=== PATIENT | male | born 1955 ===

== ENCOUNTER 2018-03-16 12:05 | Inpatient (IN) ==
[2018-03-16] MEDS ORDERED: Diphtheria/Tetanus/Pertussis Vaccine Inj 0.5 ML Syringe IM ONE (12:12)
--- NOTE | 2018-03-16 12:27 | XR ---
EXAM DATE: 03/16/2018 12:22 PM EDT AGE/SEX: 89 years / Male INDICATIONS: Trauma alert. Fall. CLINICAL DATA: This is the patient's initial encounter. Patient reports that signs and symptoms have been present for 1 day and indicates a pain score of Nonresponsive. MEDICAL/SURGICAL HISTORY: Non-responsive. Non-responsive. COMPARISON: No prior exams available for comparison. FINDINGS: 2 AP views of the pelvis performed on a trauma backboard demonstrate questionable fracture of the rig ht inferior pubic ramus. No other fracture is seen. No soft tissue abnormality or concerning radiopaq ue foreign body is identified. CONCLUSION: Questionable fracture of the right inferior pubic ramus. Electronically signed by: Aric Collazo MD 03/16/2018 12:26 PM EDT
--- NOTE | 2018-03-16 12:28 | XR ---
EXAM DATE: 03/16/2018 12:23 PM EDT AGE/SEX: 89 years / Male INDICATIONS: Trauma alert. Fall. CLINICAL DATA: This is the patient's initial encounter. Patient reports that signs and symptoms have been present for 1 day and indicates a pain score of Nonresponsive. MEDICAL/SURGICAL HISTORY: Non-responsive. Non-responsive. COMPARISON: No prior exams available for comparison. FINDINGS: Single frontal view of the chest performed on a trauma backboard demonstrates a normal size cardiac s ilhouette and mediastinum. Lungs are underinflated and no effusion, consolidation, or pneumothorax is identified. The bones and soft tissues demonstrate no acute abnormality. CONCLUSION: Underinflated examination without an acute abnormality identified. Electronically signed by: Aric Collazo MD 03/16/2018 12:27 PM EDT
[2018-03-16 12:39] LABS: Baso # (Auto) 0.1 th/mm3 (0.0-0.2); Baso % (Auto) 0.7 % (0.0-2.0); Eos # (Auto) 0.5 th/mm3 (0.0-0.4); Eos % (Auto) 6.3 % (0.0-4.0); Hematocrit 45.6 % (39.0-51.0); Hemoglobin 15.9 gm/dL (13.0-17.0); Lymph % (Auto) 37.3 % (9.0-44.0); Mean Corpuscular HGB Conc 34.9 % (32.0-36.0); Mean Corpuscular Volume 91.7 fL (80.0-100.0); Mean Platelet Volume 7.9 fL (7.0-11.0); Mono # (Auto) 0.9 th/mm3 (0.0-0.9); Mono % (Auto) 10.6 % (0.0-8.0); Neut # (Auto) 3.6 th/mm3 (1.8-7.7); Neut % (Auto) 45.1 % (16.0-70.0); Platelet Count 228 th/mm3 (150-450); Red Blood Count 4.97 mil/mm3 (4.50-5.90); Red Cell Distribution Width 12.9 % (11.6-17.2)
--- NOTE | 2018-03-16 12:39 | CT ---
EXAM DATE: 03/16/2018 12:29 PM EDT AGE/SEX: 89 years / Male INDICATIONS: Trauma alert, fall. CLINICAL DATA: This is the patient's initial encounter. Patient reports that signs and symptoms have been present for 1 day and indicates a pain score of Nonresponsive. MEDICAL/SURGICAL HISTORY: None. None. RADIATION DOSE: 66.34 CTDI (mGy) COMPARISON: No prior studies are available for comparison. TECHNIQUE: CT of the head without contrast. Using automated exposure control and adjustment of the mA and/or kV according to patient size, radiation dose was kept as low as reasonably achievable to ob tain optimal diagnostic quality images. DICOM format image data is available electronically for revi ew and comparison. FINDINGS: Cerebrum: There is mild cerebral atrophy. Ventricles are normal. There are acute subdural blood prod ucts at the high convexity and tracking along the interhemispheric fissure. These measure up to a max imal thickness of 15 mm. Inferiorly they track along the posterior interhemispheric fissure to the te ntorium. No midline shift, mass lesion, or acute infarction. No extraaxial fluid collections are see n. Posterior Fossa: The cerebellum and brainstem demonstrate no acute abnormality. The 4th ventricle is midline. The cerebellopontine angle is within normal limits. Extracranial: The visualized sinuses are clear. Skull: The calvaria is intact. No skull fracture. CONCLUSION: 1. Acute subdural blood products at the high convexity and tracking along the interhemispheric fissu re measuring up to a maximal thickness of 15 mm. No herniation is present. 2. There is no skull fracture. . Electronically signed by: Aric Collazo MD 03/16/2018 12:37 PM EDT
--- NOTE | 2018-03-16 12:43 | CT ---
EXAM DATE: 03/16/2018 12:33 PM EDT AGE/SEX: 89 years / Male INDICATIONS: Trauma alert, fall. CLINICAL DATA: This is the patient's initial encounter. Patient reports that signs and symptoms have been present for 1 day and indicates a pain score of Nonresponsive. MEDICAL/SURGICAL HISTORY: Non-responsive. Non-responsive. RADIATION DOSE: 24.66 CTDI (mGy) COMPARISON: No prior exams available for comparison. TECHNIQUE: Contiguous axial images were obtained using helical multirow detector technique. The vol umetric data was post-processed with multiplanar reconstruction in oblique axial, sagittal, and coron al planes. Using automated exposure control and adjustment of the mA and/or kV according to patient s ize, radiation dose was kept as low as reasonably achievable to obtain optimal diagnostic quality obie ges. DICOM format image data is available electronically for review and comparison. FINDINGS: There is normal sagittal spinal alignment without fracture or dislocation identified. There is no ant erolisthesis or retrolisthesis. Atlantoaxial relationship is within normal limits and there is no pre vertebral soft tissue swelling. Degenerative disc disease is appreciated at C4-C5, C5-C6, and C6-C7. There is facet arthrosis at multiple levels. The visualized surrounding structures demonstrate no acu te finding. Please refer to head CT report for description of the intracranial findings. CONCLUSION: 1. No acute cervical spine abnormality is identified. 2. Multilevel degenerative disc disease. Electronically signed by: Aric Collazo MD 03/16/2018 12:42 PM EDT
[2018-03-16 12:49] LABS: Activated Partial Thrombo Time 24.8 sec (23.4-31.7)
[2018-03-16 12:55] LABS: Anion Gap 8 meq/L (5-15); Blood Urea Nitrogen 24 mg/dL (7-18); Calcium 9.1 mg/dL (8.5-10.1); Carbon Dioxide 27.6 meq/L (21.0-32.0); Chloride 104 meq/L (98-107); Glomerular Filtration Rate 45 mL/min (>89); Glucose,Random 180 mg/dL (74-106); Sodium 140 meq/L (136-145)
[2018-03-16] MEDS ORDERED: Lidocaine 1%/Epinephrine 1:100,000 Inj 50 ML Vial INFILTRATN ONE (13:03)
--- NOTE | 2018-03-16 13:16 | P.CONNS ---
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 He is pleasant confused but remembers his name, , place of residence [place]. He does not remember what happened, +LOC. He is diabetic on metformin, but no blood thinners or other meds. Endorses no neck pain. Medications and Allergies Allergies Allergy/AdvReac Type Severity Reaction Status Date / Time No Known Allergies Allergy Verified 03/16/18 12:58 Home Medications Medication Instructions Recorded Confirmed Type levothyroxine [Synthroid] 100 mcg PO DAILY 03/16/18 03/16/18 History metformin 1,000 mg PO BID 03/16/18 03/16/18 History Exam Vital signs: Vital Signs 03/16/18 12:22 03/16/18 12:23 03/16/18 13:03 Temperature 97.8 F Pulse Rate 100 H Respiratory Rate 20 Blood Pressure 177/103 H Pulse Oximetry 99 99 100 Narrative: A&O x 3, GCS 14 CN II-XII intact Motor 5/5 UE/LE Sensation intact throughout Neck full ROM Results - Laboratory Findings CBC and BMP: 03/16/18 12:10 03/16/18 12:10 Abnormal lab findings: Abnormal Labs 03/16/18 03/16/18 03/16/18 12:10 12:10 12:10 [place] % (Auto) 10.6 H Eos % (Auto) 6.3 H Eos # (Auto) 0.5 H Fibrinogen 221 L POC Chloride 101 L POC BUN 23 H BUN Creatinine Estimated GFR POC Glucose 182 H Random Glucose 03/16/18 12:10 [place] % (Auto) Eos % (Auto) Eos # (Auto) Fibrinogen POC Chloride POC BUN BUN 24 H Creatinine 1.37 H Estimated GFR 45 L POC Glucose Random Glucose 180 H Assessment and Plan - Plan head CT: interhemispheric acute SDH measuring 14mm thickness in parts, along frontoparietal falx bilaterally C-spine Ct: no fracture 61yoM with interhemispheric traumatic SDH. Plan: Clear C-collar - spine cleared - no precautions Repeat CT with CT venogram in 4 hours. Keppra 1gm load then 500mg IV BID ICU admit neuro checks
--- NOTE | 2018-03-16 13:20 | ED ---
HPI General Chief Complaint: Trauma Alert Stated Complaint: Trauma Alert Time Seen by Provider: 03/16/18 13:10 History of Present Illness HPI narrative: This patient is brought in as a trauma alert. Patient was designated a level 2 trauma alert. I gave report to Dr. Cantu. This is a 67-year- old male who fell backwards off of a 4 foot truck lift and hit the back of his head on concrete. He lost consciousness. At the time of arrival he is awake and talking. He is confused but does have a GCS of 15. He has headache. Symptoms are moderate to severe in nature. Duration 1 hour. No alleviating factors. No exacerbating factors. Related Data Home Medications Medication Instructions Recorded Confirmed levothyroxine [Synthroid] 100 mcg PO DAILY 03/16/18 03/16/18 metformin 1,000 mg PO BID 03/16/18 03/16/18 Allergies Allergy/AdvReac Type Severity Reaction Status Date / Time No Known Allergies Allergy Verified 03/16/18 12:58 Review of Systems ROS: all other systems reviewed are negative Exam Narrative Exam Narrative: GENERAL: Well-nourished, well-developed patient in no apparent distress. SKIN: Focused skin assessment reveals no rash and nodules. Skin is Warm and dry. HEAD: There is a laceration to the back of the head. There is also a very shallow LACERATION at the low center forehead EYES: Pupils equal and round. No scleral icterus. No injection or drainage. ENT: No nasal bleeding or discharge. Mucous membranes pink and moist. NECK: Trachea midline. No JVD. C-collar maintained CARDIOVASCULAR: Regular rate and rhythm. No murmur appreciated. RESPIRATORY: No accessory muscle use. Clear to auscultation. Breath sounds equal bilaterally. GASTROINTESTINAL: Abdomen soft, non-tender, nondistended. Hepatic and splenic margins not palpable. MUSCULOSKELETAL: No obvious deformities. No clubbing. No cyanosis. No edema. NEUROLOGICAL: Awake and alert. No obvious cranial nerve deficits. Motor grossly within normal limits. He has mumbling but understandable speech. PSYCHIATRIC: Appropriate mood and affect; insight and judgment reduced. Course Initial Documented Vital Signs Pulse Oximetry 99 03/16/18 12:22 Last Documented Vital Signs Temperature 97.8 F 03/16/18 13:03 Pulse Rate 100 H 03/16/18 13:03 Respiratory Rate 20 03/16/18 13:03 Blood Pressure 177/103 H 03/16/18 13:03 Pulse Oximetry 100 03/16/18 13:03 Critical Care Time Critical Care Time: Yes Total Critical Care Time: 80 Attestation: Aggregate critical care time was 80 minutes. Time to perform other separately billable procedures was not included in the critical care time. My time did not include minutes spent treating any other patients simultaneously or on activities that did not directly contribute to the patient's treatment. The services I provided to this patient were to treat and/or prevent clinically significant deterioration that could result in: Cardiopulmonary arrest, permanent neurologic deficit, brain stem herniation I provided critical care services requiring my management, as noted below: Chart data review, documentation time, medication orders and management, vital sign assessments/reviewing monitor data, ordering and reviewing lab tests, ordering and interpreting/reviewing x-rays and diagnostic studies, care of the patient and discussion of the patient with the admitting physicians. Medical Decision Making MDM Narrative Medical decision making narrative: Patient is critically ill arrives as a trauma alert. IV placed. I gave him a tetanus booster. I ordered imaging survey. I reviewed x-rays of his chest and pelvis. Chest is negative. And pelvis shows questionable nondisplaced pelvic fracture. I have ordered CT imaging of abdomen and pelvis but this was delayed and he has not had it done yet. CT the brain shows intracranial hemorrhage. I have reviewed it in detail with the neurosurgeon and showed him the images. He also has looked at the C-spine and clear the C-spine. He recommends 1 g IV Keppra which I am ordering now Lab studies reviewed. Case discussed with trauma surgeon. He will be admitted to intensive care Medical Screen Exam Complete: Yes Emergency Medical Condition: Yes Differential Diagnosis Differential Diagnosis: Intracranial hemorrhage, concussion, brain stem herniation Lab Data Lab results reviewed: Yes I reviewed the patient's lab results. Lab results narrative: Labs are normal except for mild renal insufficiency and mild hyperglycemia Result diagrams: 03/16/18 12:10 03/16/18 12:10 Lab Results 03/16/18 03/16/18 03/16/18 Range/Units 12:10 12:10 12:10 WBC 8.0 (4.0-11.0) th/mm3 RBC 4.97 (4.50-5.90) mil/mm3 Hgb 15.9 (13.0-17.0) gm/dL POC Hgb (Calc) 15.3 (13.0-17.0) g/dL Hct 45.6 (39.0-51.0) % POC Hct 45.0 (39-51.0) % MCV 91.7 (80.0-100.0) fL MCH 32.0 (27.0-34.0) pg MCHC 34.9 (32.0-36.0) % RDW 12.9 (11.6-17.2) % Plt Count 228 (150-450) th/mm3 MPV 7.9 (7.0-11.0) fL Neut % (Auto) 45.1 (16.0-70.0) % Lymph % (Auto) 37.3 (9.0-44.0) % Spink % (Auto) 10.6 H (0.0-8.0) % Eos % (Auto) 6.3 H (0.0-4.0) % Baso % (Auto) 0.7 (0.0-2.0) % Neut # (Auto) 3.6 (1.8-7.7) th/mm3 Lymph # (Auto) 3.0 (1.0-4.8) th/mm3 Spink # (Auto) 0.9 (0.0-0.9) th/mm3 Eos # (Auto) 0.5 H (0.0-0.4) th/mm3 Baso # (Auto) 0.1 (0.0-0.2) th/mm3 WBC Differential . Differential Comment Auto diff final PT 10.0 (9.8-11.6) sec INR 1.0 Ratio APTT 24.8 (23.4-31.7) sec Fibrinogen (227-377) mg/dL POC Sodium 140 (137-144) mmol/L Sodium (136-145) meq/L POC Potassium 4.1 (3.6-5.0) mmol/L Potassium (3.5-5.1) meq/L POC Chloride 101 L (102-111) mmol/L Chloride (98-107) meq/L Carbon Dioxide (21.0-32.0) meq/L Anion Gap (5-15) meq/L POC BUN 23 H (5-21) mg/dL BUN (7-18) mg/dL Creatinine (0.60-1.30) mg/dL POC Creatinine 1.3 (0.6-1.3) mg/dL Estimated GFR (>89) mL/min POC Glucose 182 H (68-110) mg/dL Random Glucose (74-106) mg/dL Calcium (8.5-10.1) mg/dL Serum Alcohol (0-5) mg/dL Blood Type Antibody Screen 03/16/18 03/16/18 03/16/18 Range/Units 12:10 12:10 12:10 WBC (4.0-11.0) th/mm3 RBC (4.50-5.90) mil/mm3 Hgb (13.0-17.0) gm/dL POC Hgb (Calc) (13.0-17.0) g/dL Hct (39.0-51.0) % POC Hct (39-51.0) % MCV (80.0-100.0) fL MCH (27.0-34.0) pg MCHC (32.0-36.0) % RDW (11.6-17.2) % Plt Count (150-450) th/mm3 MPV (7.0-11.0) fL Neut % (Auto) (16.0-70.0) % Lymph % (Auto) (9.0-44.0) % Spink % (Auto) (0.0-8.0) % Eos % (Auto) (0.0-4.0) % Baso % (Auto) (0.0-2.0) % Neut # (Auto) (1.8-7.7) th/mm3 Lymph # (Auto) (1.0-4.8) th/mm3 Spink # (Auto) (0.0-0.9) th/mm3 Eos # (Auto) (0.0-0.4) th/mm3 Baso # (Auto) (0.0-0.2) th/mm3 WBC Differential Differential Comment PT (9.8-11.6) sec INR Ratio APTT (23.4-31.7) sec Fibrinogen 221 L (227-377) mg/dL POC Sodium (137-144) mmol/L Sodium 140 (136-145) meq/L POC Potassium (3.6-5.0) mmol/L Potassium 4.0 (3.5-5.1) meq/L POC Chloride (102-111) mmol/L Chloride 104 (98-107) meq/L Carbon Dioxide 27.6 (21.0-32.0) meq/L Anion Gap 8 (5-15) meq/L POC BUN (5-21) mg/dL BUN 24 H (7-18) mg/dL Creatinine 1.37 H (0.60-1.30) mg/dL POC Creatinine (0.6-1.3) mg/dL Estimated GFR 45 L (>89) mL/min POC Glucose (68-110) mg/dL Random Glucose 180 H (74-106) mg/dL Calcium 9.1 (8.5-10.1) mg/dL Serum Alcohol Less than 3 (0-5) mg/dL Blood Type A Negative Antibody Screen Negative Imaging Data Attestation: I personally reviewed and interpreted this imaging study as follows : My impression: Chest x-ray is negative. Pelvic x-ray shows question of a ramus fracture. CT brain shows subdural blood Radiologist's impression: Chest X-Ray 03/16/18 12:07 CONCLUSION: Underinflated examination without an acute abnormality identified. Pelvis X-Ray 03/16/18 12:07 CONCLUSION: Questionable fracture of the right inferior pubic ramus. Cervical Spine CT 03/16/18 12:14 CONCLUSION: 1. No acute cervical spine abnormality is identified. 2. Multilevel degenerative disc disease. Head CT 03/16/18 12:14 CONCLUSION: 1. Acute subdural blood products at the high convexity and tracking along the interhemispheric fissure measuring up to a maximal thickness of 15 mm. No herniation is present. 2. There is no skull fracture. . Discharge Plan Discharge Disposition Patient Disposition: 30 Still Patient Discharge Details Diagnosis: ICH (intracerebral hemorrhage) Physicians Team ED Provider: Edil Gonzalez Primary Care Provider: UNKNOWN, Attending Provider: Estelle Guerra Discharge Interventions Interventions: Vital Signs Last Done: 03/16/18 13:03 Status ED Status: Admitted Patient
[2018-03-16] MEDS ORDERED: Naloxone Inj 0.4 MG/ML Vial IV.PUSH PRN (13:26)
[2018-03-16] MEDS ORDERED: Post-op Orders (for Pharmacy) OTHER ONE (13:26)
[2018-03-16] MEDS ORDERED: Bisacodyl 10 MG Supp RECTAL PRN (13:26)
--- NOTE | 2018-03-16 13:58 | CT ---
EXAM DATE: 03/16/2018 1:48 PM EDT AGE/SEX: 89 years / Male INDICATIONS: Trauma alert, fall. CLINICAL DATA: This is the patient's initial encounter. Patient reports that signs and symptoms have been present for 1 day and indicates a pain score of Nonresponsive. MEDICAL/SURGICAL HISTORY: Non-responsive. Non-responsive. ORAL CONTRAST: No oral contrast ingested. RADIATION DOSE: 16.13 CTDI (mGy) COMPARISON: No prior exams available for comparison. TECHNIQUE: Multiple contiguous axial images were obtained through the abdomen and pelvis following b olus infusion of 95 ml Omnipaque 350 (iohexol) nonionic water-soluble contrast as a single exam dos e. No oral contrast ingested. Using automated exposure control and adjustment of the mA and/or kV ac cording to patient size, radiation dose was kept as low as reasonably achievable to obtain optimal di agnostic quality images. DICOM format image data is available electronically for review and comparis on. FINDINGS: The lower lungs are clear. Liver, spleen, pancreas and adrenals unremarkable 2.8 cm right renal cyst Pedunculated 1 similar left renal cyst Cecum, ascending, transverse and descending colon appears unremarkable. In the pelvis are scattered d iverticuli without free fluid or free air. Bladder prostate and seminal vesicles unremarkable. Review of bone windows reveals degenerative changes at L4-5 and to lesser degree L5-S1. CONCLUSION: 1. Bilateral renal cyst, negative for acute traumatic injury. Electronically signed by: Jean-Paul Jones MD 03/16/2018 1:56 PM EDT
[2018-03-16] MEDS ORDERED: Sod Chloride 0.9% Inj 1,000 ML IV.CONT SCH (14:00)
[2018-03-16] MEDS ORDERED: Hold Metfromin until further notice OTHER ONE (14:00)
--- NOTE | 2018-03-16 14:03 | MH ---
cc: Estelle Guerra MD DATE OF ADMISSION: 03/16/2018 REASON FOR ADMISSION: Intracranial bleed. HISTORY OF PRESENT ILLNESS: This is a 61-year-old male, who fell off a truck about 4 feet. He does not remember the actual accident, but on arrival, he is awake, alert, oriented, but slightly confused. He was transferred to our institution prior due to our Trauma Alert, on spinal load with C-collar in place. PAST MEDICAL HISTORY: Diabetes. The patient is on metformin. PAST SURGICAL HISTORY: Unknown. MEDICATIONS: Except for metformin, I do not have anything else. ALLERGIES: NONE. PHYSICAL EXAMINATION: GENERAL: Reveals a 61-year-old male, normocephalic, trauma to the head consistent with posterior laceration of the head, but no underlying fracture or deformity noted. This has been addressed by the PA in the emergency room. HEENT: Pupils equal, reactive. Extraocular muscles intact. No hemotympanum. No light sign, no raccoon's eyes. No lateralization. NECK: Bilateral carotid pulses. No bruits. The patient denies neck pain, but states he hurts in the back of the head. CHEST: Bilateral breath sounds. No masses. No deformities. HEART: Regular rhythm. Pressure is about 150/80. ABDOMEN: Soft, obese. Active bowel sounds. No rebound, no guarding, no masses. EXTREMITIES: The patient has good proximal and distal pulses. No vascular deficit. BACK: Normal. NEUROLOGIC: The patient is fully intact, cranial nerves II-XII are intact. Methodically, the patient is intact. No lateralization, no drift. Normal deep tendon reflexes. No pathologic reflexes. IMPRESSION: The patient with fall over 4 feet, head injury, underwent full workup, is noted to have a subarachnoid bleed alongside the sagittal sinus on the vertex of the brain, which is about 1.5 or 1.8 cm thick. The patient now has no signs of neurologic deterioration. PLAN: He will undergo venous sinus CT scan in about 2-3 hours. We will see which way this goes. Will be admitted to the ICU for further care. Discussed with neurosurgery. CRITICAL CARE TIME: 38 minutes. MD ESA Davila/rh , 01:44 PM , 01:51 PM
[2018-03-16] MEDS: levETIRAcetam 500 MG Tablet PO SCH ×2 (14:09→21:27)
[2018-03-16] MEDS ORDERED: Dextrose 50% in Water 50 ML Vial IV.PUSH PRN (16:26)
[2018-03-16] MEDS: Insulin NovoLIN Regular Correctional Sugar Inj SQ SCH (18:18)
[2018-03-16] MEDS ORDERED: Gadobutrol PF 10 MMOL/10 ML Vial (for RAD) IV.SIG ONE (19:00)
--- NOTE | 2018-03-16 19:06 | MR ---
EXAM DATE: 03/16/2018 6:53 PM EDT AGE/SEX: 62 years / Male INDICATIONS: Stenosis. CLINICAL DATA: This is the patient's initial encounter. Patient reports that signs and symptoms have been present for 1 day and indicates a pain score of 0/10. MEDICAL/SURGICAL HISTORY: Hypertension. Hypercholesterolemia. . Lazy eye. COMPARISON: . TECHNIQUE: MR cerebral venography is performed without and with 10 ml Gadavist (gadobutrol) contrast (single exam dose). Source images, 3D volume MIP, and sliding thin slab MIP reconstructions were re viewed. FINDINGS: There is excellent visualization of the major intracranial arteries out to the second-order branch ve ssels. There is no evidence for aneurysm, vessel truncation or stenosis, and no evidence for vascula r malformation. The superior sagittal sinus, transverse sinus and sigmoid sinuses are patent bilaterally. The inferio r sagittal sinus is seen on the source images as being extremely small with little flow. Straight sin us is patent. CONCLUSION: 1. Significant venous thrombosis involving the superior sagittal sinus, transverse sinus, sigmoid si nuses and straight sinus is not present. 2. The inferior sagittal sinus appears extremely small with little flow. Electronically signed by: Aric Sarkar MD 03/16/2018 7:05 PM EDT
[2018-03-16] MEDS: Senna/Docusate Sodium 8.6/50 MG Tablet PO SCH (21:27)
[2018-03-16] MEDS: Acetaminophen 325 MG Tablet PO PRN (21:27)
[2018-03-17] MEDS: Acetaminophen 325 MG Tablet PO PRN ×2 (04:07→20:21)
[2018-03-17 05:11] LABS: Baso % (Auto) 0.3 % (0.0-2.0); Eos # (Auto) 0.3 th/mm3 (0.0-0.4); Eos % (Auto) 2.4 % (0.0-4.0); Hematocrit 43.7 % (39.0-51.0); Hemoglobin 15.2 gm/dL (13.0-17.0); Lymph # (Auto) 2.2 th/mm3 (1.0-4.8); Mean Corpuscular HGB Conc 34.8 % (32.0-36.0); Mean Corpuscular Hemoglobin 31.9 pg (27.0-34.0); Mean Corpuscular Volume 91.7 fL (80.0-100.0); Mean Platelet Volume 8.1 fL (7.0-11.0); Mono % (Auto) 9.4 % (0.0-8.0); Neut # (Auto) 6.9 th/mm3 (1.8-7.7); Neut % (Auto) 66.9 % (16.0-70.0); Platelet Count 194 th/mm3 (150-450); Red Blood Count 4.76 mil/mm3 (4.50-5.90); Red Cell Distribution Width 12.8 % (11.6-17.2); White Blood Count 10.3 th/mm3 (4.0-11.0)
[2018-03-17 05:37] LABS: Calcium 8.3 mg/dL (8.5-10.1); Carbon Dioxide 25.8 meq/L (21.0-32.0); Potassium 3.8 meq/L (3.5-5.1)
--- NOTE | 2018-03-17 08:01 | CT ---
EXAM DATE: 03/17/2018 7:52 AM EDT AGE/SEX: 62 years / Male INDICATIONS: Abnormal CT head yesterday. CLINICAL DATA: This is the patient's initial encounter. Patient reports that signs and symptoms have been present for 1 day and indicates a pain score of 4/10. MEDICAL/SURGICAL HISTORY: Diabetes. Hypothyroidism. None. RADIATION DOSE: 50.93 CTDI (mGy) [place] [facility] [place]. . TECHNIQUE: CT of the head without contrast. Using automated exposure control and adjustment of the mA and/or kV according to patient size, radiation dose was kept as low as reasonably achievable to ob tain optimal diagnostic quality images. DICOM format image data is available electronically for revi ew and comparison. FINDINGS: Cerebrum: Midline hyperdensity tracking along the falx diffusely is unchanged. No midline shift. No evidence of intracranial mass lesion or acute infarct. Posterior Fossa: The cerebellum and brainstem are intact. The 4th ventricle is midline. The cerebe llopontine angle is unremarkable. Extracranial: The visualized portion of the orbits is intact. Skull: The calvaria is intact. No evidence of skull fracture. CONCLUSION: Extensive hyperdensity tracking along the interhemispheric fissure the frontal, parietal, and occipit al regions is again seen and unchanged, indicating subdural hematoma. . Electronically signed by: Luigi Burciaga MD 03/17/2018 8:00 AM EDT
--- NOTE | 2018-03-17 08:51 | P.PNNS ---
Subjective Interval history: No acute events overnight. Patient states he has no memory of the incident that led to his hospitalization. He endorses some mild headache this morning, otherwise does not have major complaints. Physical Exam Vital signs: Vital Signs 03/16/18 12:07 03/16/18 12:22 03/16/18 12:23 Temperature Pulse Rate 102 H Respiratory Rate Blood Pressure Pulse Oximetry 99 99 03/16/18 13:03 03/16/18 13:28 03/16/18 14:05 Temperature 97.8 F 97.7 F 97.7 F Pulse Rate 100 H 102 H 100 H Respiratory Rate 20 17 17 Blood Pressure 177/103 H 173/100 H 168/100 H Pulse Oximetry 100 100 98 03/16/18 14:12 03/16/18 14:23 03/16/18 14:30 Temperature Pulse Rate 108 H 107 H Respiratory Rate 17 15 Blood Pressure 172/94 H 174/99 H Pulse Oximetry 66 L 99 100 03/16/18 14:45 03/16/18 15:00 03/16/18 15:15 Temperature Pulse Rate 108 H 107 H 107 H Respiratory Rate 30 H 26 H 26 H Blood Pressure 173/102 H 167/88 H 165/92 H Pulse Oximetry 99 99 98 03/16/18 15:30 03/16/18 15:45 03/16/18 16:00 Temperature 97.8 F Pulse Rate 106 H 110 H 109 H Respiratory Rate 26 H 23 23 Blood Pressure 167/100 H 162/94 H 156/87 H Pulse Oximetry 99 99 98 03/16/18 16:15 03/16/18 16:30 03/16/18 16:45 Temperature Pulse Rate 110 H 103 H 105 H Respiratory Rate 33 H 24 21 Blood Pressure 163/98 H 160/97 H 158/96 H Pulse Oximetry 97 98 98 03/16/18 17:00 03/16/18 17:15 03/16/18 17:30 Temperature Pulse Rate 99 H 97 H 100 H Respiratory Rate 27 H 18 24 Blood Pressure 159/96 H 160/96 H 170/103 H Pulse Oximetry 99 97 97 03/16/18 17:45 03/16/18 20:00 03/17/18 00:00 Temperature 98.5 F 98.5 F Pulse Rate 98 H 100 H 90 Respiratory Rate 24 18 Blood Pressure 169/103 H 138/70 131/69 Pulse Oximetry 97 99 94 L 03/17/18 04:00 Temperature 98.5 F Pulse Rate 80 Respiratory Rate 18 Blood Pressure 140/85 Pulse Oximetry 96 Intake & Output 03/16/18 03/17/18 03/17/18 18:59 06:59 18:59 Intake Total 240 / 240 120 / 120 Output Total 500 / 500 200 / 200 700 / 700 Balance -260 / -260 -200 / -200 -580 / -580 Weight 110.2 kg 105.4 kg Intake: Oral 240 / 240 120 / 120 Output: Urine 500 / 500 200 / 200 700 / 700 Other: Date of Last Bowel Movement 03/16/18 03/16/18 Weight On Admission 90.718 kg - Routine Neurological Exam Awake, alert. Regards and tracks appropriately. Oriented to name, hospital, year. Speech is fluent. Follows commands briskly x4. Antigravity throughout. Assessment and Plan - Plan head CT: interhemispheric acute SDH measuring 14mm thickness in parts, along frontoparietal falx bilaterally C-spine Ct: no fracture Head CT 03/17/18 morning: Stable to my interpretation, no evidence of expansion, stroke, or new hemorrhage 61yoM with interhemispheric traumatic SDH. Plan: Clear C-collar - spine cleared - no precautions No need for additional brain imaging unless the patient has a clinical change of concern Keppra 1gm load then 500mg IV BID x 7d Frequent neuro checks
[2018-03-17] MEDS: levETIRAcetam 500 MG Tablet PO SCH ×2 (09:37→20:21)
[2018-03-17] MEDS: Levothyroxine 100 MCG Tablet PO SCH (09:42)
[2018-03-17] MEDS: Insulin NovoLIN Regular Correctional Sugar Inj SQ SCH ×4 (12:07→22:53)
--- NOTE | 2018-03-17 12:59 | P.PNCC ---
Subjective Brief History: 62-year-old male fell off a truck while loading bottles at the [employer] from about 4 feet height. Patient does not remember the accident however was transferred to our institution as priority 1 trauma alert and on arrival awake alert and oriented complaining about a headache Patient underwent full diagnostic workup Initial workup reveals Intracranial subdural hemorrhage alongside the falx cerebri and sagittal sinus Patient is scheduled to undergo MRI venous phase to assess for possible laceration of the sagittal sinus or thrombosis of the same which can be seen in patients with this type of injury 24 Hour Review/Hospital Course: 03/17/2018 Patient has been stable overnight he is awake alert and oriented and neurologically fully intact No lateralization no drift CN II to XII normal Motorically fully intact and normal deep tendon reflexes no pathologic reflexes MRA of the brain venous phase reveals is a suspected thrombosis of the sagittal sinus extending onto the tentorium Neurosurgery aware Hemodynamically fully intact Bilateral good breath sounds Transfer patient to floor and continue further observation all things equal patient will probably be able to discharge tomorrow with follow-up with neurosurgery Objective Vital Signs / I&O: Vital Signs 03/16/18 13:03 03/16/18 13:28 03/16/18 14:05 Temperature 97.8 F 97.7 F 97.7 F Pulse Rate 100 H 102 H 100 H Respiratory Rate 20 17 17 Blood Pressure 177/103 H 173/100 H 168/100 H Pulse Oximetry 100 100 98 03/16/18 14:12 03/16/18 14:23 03/16/18 14:30 Temperature Pulse Rate 108 H 107 H Respiratory Rate 17 15 Blood Pressure 172/94 H 174/99 H Pulse Oximetry 66 L 99 100 03/16/18 14:45 03/16/18 15:00 03/16/18 15:15 Temperature Pulse Rate 108 H 107 H 107 H Respiratory Rate 30 H 26 H 26 H Blood Pressure 173/102 H 167/88 H 165/92 H Pulse Oximetry 99 99 98 03/16/18 15:30 03/16/18 15:45 03/16/18 16:00 Temperature 97.8 F Pulse Rate 106 H 110 H 109 H Respiratory Rate 26 H 23 23 Blood Pressure 167/100 H 162/94 H 156/87 H Pulse Oximetry 99 99 98 03/16/18 16:15 03/16/18 16:30 03/16/18 16:45 Temperature Pulse Rate 110 H 103 H 105 H Respiratory Rate 33 H 24 21 Blood Pressure 163/98 H 160/97 H 158/96 H Pulse Oximetry 97 98 98 03/16/18 17:00 03/16/18 17:15 03/16/18 17:30 Temperature Pulse Rate 99 H 97 H 100 H Respiratory Rate 27 H 18 24 Blood Pressure 159/96 H 160/96 H 170/103 H Pulse Oximetry 99 97 97 03/16/18 17:45 03/16/18 20:00 03/17/18 00:00 Temperature 98.5 F 98.5 F Pulse Rate 98 H 100 H 90 Respiratory Rate 24 18 Blood Pressure 169/103 H 138/70 131/69 Pulse Oximetry 97 99 94 L 03/17/18 04:00 03/17/18 08:00 03/17/18 10:00 Temperature 98.5 F 98.1 F Pulse Rate 80 87 86 Respiratory Rate 18 16 Blood Pressure 140/85 133/88 Pulse Oximetry 96 97 03/17/18 11:01 03/17/18 12:00 Temperature 98.1 F Pulse Rate 78 Respiratory Rate 17 Blood Pressure 151/88 H Pulse Oximetry 97 97 Intake & Output 03/16/18 03/17/18 03/17/18 18:59 06:59 18:59 Intake Total 240 / 240 120 / 120 Output Total 500 / 500 200 / 200 700 / 700 Balance -260 / -260 -200 / -200 -580 / -580 Weight 110.2 kg 105.4 kg Intake: Oral 240 / 240 120 / 120 Output: Urine 500 / 500 200 / 200 700 / 700 Other: Date of Last Bowel Movement 03/16/18 03/16/18 03/16/18 Weight On Admission 90.718 kg Result Diagrams: 03/17/18 03:49 03/17/18 03:49 Imaging: Impressions Head/Brain Mag Res Venography 03/16/18 00:00 CONCLUSION: 1. Significant venous thrombosis involving the superior sagittal sinus, transverse sinus, sigmoid sinuses and straight sinus is not present. 2. The inferior sagittal sinus appears extremely small with little flow. Abdomen/Pelvis CT 03/16/18 12:42 CONCLUSION: 1. Bilateral renal cyst, negative for acute traumatic injury. Head CT 03/17/18 00:00 CONCLUSION: Extensive hyperdensity tracking along the interhemispheric fissure the frontal, parietal, and occipital regions is again seen and unchanged, indicating subdural hematoma. . Disinhibition Score: 14.00 Aggression Score: 14.00 Lability Score: 14.00 Agitated Behavior Total Score: 14 Assessment and Plan Attestation: Critical care 32 minutes
[2018-03-17] MEDS: Senna/Docusate Sodium 8.6/50 MG Tablet PO SCH ×2 (15:46→22:18)
[2018-03-18] MEDS: Levothyroxine 100 MCG Tablet PO SCH (05:49)
[2018-03-18 08:10] LABS: White Blood Count 8.5 th/mm3 (4.0-11.0)
[2018-03-18 08:11] LABS: Baso % (Auto) 0.6 % (0.0-2.0); Eos # (Auto) 0.3 th/mm3 (0.0-0.4); Eos % (Auto) 3.9 % (0.0-4.0); Hematocrit 42.3 % (39.0-51.0); Hemoglobin 15.2 gm/dL (13.0-17.0); Lymph # (Auto) 2.2 th/mm3 (1.0-4.8); Lymph % (Auto) 26.1 % (9.0-44.0); Mean Corpuscular HGB Conc 35.9 % (32.0-36.0); Mean Corpuscular Hemoglobin 32.1 pg (27.0-34.0); Mean Corpuscular Volume 89.6 fL (80.0-100.0); Mean Platelet Volume 8.1 fL (7.0-11.0); Mono # (Auto) 0.8 th/mm3 (0.0-0.9); Mono % (Auto) 8.9 % (0.0-8.0); Neut # (Auto) 5.1 th/mm3 (1.8-7.7); Neut % (Auto) 60.5 % (16.0-70.0); Platelet Count 186 th/mm3 (150-450); Red Blood Count 4.72 mil/mm3 (4.50-5.90); Red Cell Distribution Width 12.8 % (11.6-17.2)
[2018-03-18] MEDS: Insulin NovoLIN Regular Correctional Sugar Inj SQ SCH ×2 (08:20→15:03)
[2018-03-18] MEDS: levETIRAcetam 500 MG Tablet PO SCH (08:57)
[2018-03-18] MEDS: Senna/Docusate Sodium 8.6/50 MG Tablet PO SCH (08:59)
--- NOTE | 2018-03-18 10:03 | P.PNNS ---
Subjective Interval history: No acute events overnight. Moved to the floor yesterday. Endorses some mild headache today, but nothing severe. No new numbness, tingling, weakness, etc. Physical Exam Vital signs: Vital Signs 03/17/18 12:00 03/17/18 16:00 03/17/18 20:00 Temperature 98.1 F 97.7 F 98.7 F Pulse Rate 78 73 79 Respiratory Rate 17 17 24 Blood Pressure 151/88 H 125/75 116/69 Pulse Oximetry 97 97 03/17/18 20:13 03/18/18 00:00 03/18/18 00:40 Temperature 97.5 F L Pulse Rate 74 71 Respiratory Rate 17 Blood Pressure 132/75 Pulse Oximetry 98 96 03/18/18 04:00 03/18/18 07:47 03/18/18 08:05 Temperature 98.0 F 97.6 F Pulse Rate 72 72 Respiratory Rate 17 18 Blood Pressure 141/88 H 154/87 H Pulse Oximetry 95 97 97 Intake & Output 03/17/18 03/18/18 03/18/18 19:59 06:59 18:59 Intake Total Output Total Balance Weight Intake: Oral Output: Urine Other: # Voids Date of Last Bowel Movement # Bowel Movements - Routine Neurological Exam Alert and conversant, making jokes. Face symmetric. Follows commands grossly x4, normal strength throughout. Assessment and Plan - Plan head CT: interhemispheric acute SDH measuring 14mm thickness in parts, along frontoparietal falx bilaterally C-spine Ct: no fracture Head CT 03/17/18 morning: Stable to my interpretation, no evidence of expansion, stroke, or new hemorrhage 61yoM with interhemispheric traumatic SDH. Plan: Clear C-collar - spine cleared - no precautions No need for additional brain imaging unless the patient has a clinical change of concern Keppra 1gm load then 500mg IV BID x 7d Frequent neuro checks PT/OT for mobilization
[2018-03-18 14:50] LABS: Calcium 7.9 mg/dL (8.5-10.1); Potassium 3.8 meq/L (3.5-5.1)
--- NOTE | 2018-03-18 16:25 | P.DS ---
Date of admission: 03/16/18 12:45 Primary care physician: UNKNOWN Brief History from admission: S/P Fall DS: Diagnosis - Discharge Diagnosis (1) ICH (intracerebral hemorrhage) Status: Acute (2) Embolism of inferior sagittal sinus Status: Acute DS: Medications - Discharge Medications Prescriptions: levetiracetam [Keppra] 500 mg PO BID 5 Days #10 tab DS: Summary Hospital Course: ALUTIIQ: Fell backwards off of a 4 foot truck lift striking the back of his head on concrete. + LOC. GCS = 14 INJURIES: Interhemispheric SDH Inferior sagittal sinus thrombosis PMHx: DM, hypothyroidism Interhemispheric SDH, Inferior sagittal sinus thrombosis Neurosurgery consulted, F/U outpatient Supportive care Repeat Head CT- stable Neuro checks stable Continue Keppra for full 7 days Avoid second head injury Postconcussive education F/U with PCP in 1 week Plan of care discussed with patient and RN at bedside. Collaborating Trauma surgeon agrees with plan. Case management consulted to assist with discharge planning. Patient is clear from trauma surgery standpoint to safely DC home. - Time Spent with Patient Total time spent providing and/or coordinating discharge services: Greater than 30 minutes - Quality: VTE Deep Vein Thrombosis/Pulmonary Embolism Present on Admission: No Exam Vital signs: Vital Signs 03/17/18 20:00 03/17/18 20:13 03/18/18 00:00 Temperature 98.7 F 97.5 F L Pulse Rate 79 74 Respiratory Rate 24 17 Blood Pressure 116/69 132/75 Pulse Oximetry 98 96 03/18/18 00:40 03/18/18 04:00 03/18/18 07:47 Temperature 98.0 F 97.6 F Pulse Rate 71 72 72 Respiratory Rate 17 18 Blood Pressure 141/88 H 154/87 H Pulse Oximetry 95 97 03/18/18 08:05 03/18/18 12:00 Temperature 97.5 F L Pulse Rate 90 Respiratory Rate 18 Blood Pressure 157/95 H Pulse Oximetry 97 97 Intake & Output 03/17/18 03/18/18 03/18/18 19:59 06:59 18:59 Intake Total Output Total Balance Weight Intake: Oral Output: Urine Other: # Voids Date of Last Bowel Movement 03/16/18 # Bowel Movements Narrative: GENERAL: 62 year old well developed male sitting OOB in chair. SKIN: Warm and dry. Midline forehead lac with sutures well approximated. CARDIOVASCULAR: Regular rate and rhythm. RESPIRATORY: Lungs clear to auscultation bilaterally. GASTROINTESTINAL: Abdomen soft, non-tender, nondistended. + BS. MUSCULOSKELETAL: Extremities without cyanosis or edema. MAEW, + perfused NEUROLOGICAL: Alert and awake. Speech clear. Results Procedures completed during hospitalization: . Labs on day of discharge: Labs from last 24 hours 03/18/18 03/18/18 03/18/18 14:18 11:56 07:26 WBC RBC Hgb Hct MCV MCH MCHC RDW Plt Count MPV Neut % (Auto) Lymph % (Auto) Charles % (Auto) Eos % (Auto) Baso % (Auto) Neut # (Auto) Lymph # (Auto) Charles # (Auto) Eos # (Auto) Baso # (Auto) WBC Differential Differential Comment Sodium 137 Potassium 3.8 Chloride 104 Carbon Dioxide 23.0 Anion Gap 10 BUN 19 H Creatinine 1.18 Estimated GFR 63 L POC Glucose 139 H 135 H Random Glucose 143 H Calcium 7.9 L 03/18/18 03/17/18 03/17/18 05:48 20:24 17:34 WBC 8.5 RBC 4.72 Hgb 15.2 Hct 42.3 MCV 89.6 MCH 32.1 MCHC 35.9 RDW 12.8 Plt Count 186 MPV 8.1 Neut % (Auto) 60.5 Lymph % (Auto) 26.1 Charles % (Auto) 8.9 H Eos % (Auto) 3.9 Baso % (Auto) 0.6 Neut # (Auto) 5.1 Lymph # (Auto) 2.2 Charles # (Auto) 0.8 Eos # (Auto) 0.3 Baso # (Auto) 0.0 WBC Differential . Differential Comment Auto diff final Sodium Potassium Chloride Carbon Dioxide Anion Gap BUN Creatinine Estimated GFR POC Glucose 153 H 125 H Random Glucose Calcium - Impressions ITS Impressions Head/Brain Mag Res Venography 03/16/18 00:00 CONCLUSION: 1. Significant venous thrombosis involving the superior sagittal sinus, transverse sinus, sigmoid sinuses and straight sinus is not present. 2. The inferior sagittal sinus appears extremely small with little flow. Chest X-Ray 03/16/18 12:07 CONCLUSION: Underinflated examination without an acute abnormality identified. Pelvis X-Ray 03/16/18 12:07 CONCLUSION: Questionable fracture of the right inferior pubic ramus. Cervical Spine CT 03/16/18 12:14 CONCLUSION: 1. No acute cervical spine abnormality is identified. 2. Multilevel degenerative disc disease. Abdomen/Pelvis CT 03/16/18 12:42 CONCLUSION: 1. Bilateral renal cyst, negative for acute traumatic injury. Head CT 03/17/18 00:00 CONCLUSION: Extensive hyperdensity tracking along the interhemispheric fissure the frontal, parietal, and occipital regions is again seen and unchanged, indicating subdural hematoma. . Discharge Plan - Discharge Disposition Patient Disposition: Discharge Home - Discharge Condition Condition: Stable - Discharge Order Discharge Orders: Discharge Order (Routine); Ordered 03/18/18 Ordered By: Marco A Coyle - Physicians Team Primary Care Provider: UNKNOWN, Attending Provider: Estelle Guerra Other Providers: Ruiz Gray MD ; Matt Sanford MD ; Issac Demarco MD ; [employer] ; Fercho Rojas MD ; Ruth Ann Willson ARNP ; Kristian Villegas MD ; Liliana Tarango MD ; Marco A Coyle ARNP ; Estelle Guerra MD
== END 2018-03-18 16:56 | disposition home or self-care (01) ==
LOC: NEPI 12:05 → EDBD 12:45 → NEDA 12:45 → N03 14:05 → N06 03-17 22:45
PROVIDERS: ADMIT Surgery; ATTEND Surgery